=== PATIENT | female | born 1940 | race Caucasian/White ===

== ENCOUNTER → 2016-10-31 | Outpatient (CLI) | payer MEDICARE, OTHER ==
[~2016-10-31] MED LIST: AMIODARONE HCL200 MG PO; ASPIRIN325 M1 PO; ASPIRIN325 MG PO; CITALOPRAM HYDR20 MG PO; DEXAMETHASONE4 MG PO; HYDROCHLOROTH12.5 M1 PO; INVANZ 1 GM1 GM IV; LOSARTAN POTAS100 MG PO; METOPROLOL SUCC25 M2 PO; NIACIN50 MG PO; PHENERGAN 12.12.5 M1 PO; PRAVASTATIN SOD80 MG PO; PREDNICOT10 MG PO; VANCOMYCIN HC1000 MG IV
[2016-10-31 09:36] LABS: LYMPH % 27.2 % (10-50.0)
[2016-10-31 10:25] LABS: HEMOGLOBIN 14.7 g/dL (12.2-16.2)
[2016-10-31 10:37] LABS: BUN 21 mg/dL (7-18)
[2016-10-31 10:38] LABS: GFR (ESTIMATED) 54 ML/MIN (59-)
[2016-11-01 09:42] LABS: Creatinine, Urine 148.1 mg/dL (Not Estab.); Microalbumin, Urine 8.2 ug/mL (Not Estab.)
== END ==
LOC: LAB 09:04
PROVIDERS: Family Medicine
DX: N28.9 Disorder of kidney and ureter, unspecified (principal); R73.01 Impaired fasting glucose; I10 Essential (primary) hypertension; E78.00 Pure hypercholesterolemia, unspecified